=== PATIENT | female | born 1980 | race African-American/Black ===

== ENCOUNTER 2022-06-09 19:58 | Emergency (ER) | payer SELFPAY ==
[2022-06-09] MEDS ORDERED: Cyclobenzaprine 10 MG TAB ONE (20:38)
[2022-06-09] MEDS ORDERED: Ketorolac Tromethamine 30 MG/ML VIAL ONE (20:38)
== END 2022-06-09 20:46 | disposition home or self-care (01) ==
LOC: CSHERS 19:58
DX: M62.830 Muscle spasm of back (principal); F17.210 Nicotine dependence, cigarettes, uncomplicated
CPT/HCPCS: 96372; 99283; J1885